=== PATIENT | male | born 1960 | race Caucasian/White ===

== ENCOUNTER 2019-05-17 05:47 | Observation (INO) | payer BC ==
[2019-05-17] MEDS ORDERED: Acetaminophen 325 MG Tab PO ONE (06:28)
[2019-05-17] MEDS ORDERED: Ibuprofen 800 MG Tab PO ONE (06:28)
[2019-05-17] MEDS ORDERED: Cyclobenzaprine 10 MG Tab PO ONE (06:28)
--- NOTE | 2019-05-17 06:47 | EDM.PDOC ---
<Inez Mahmood A - Last Filed: 05/17/19 07:22> ED HPI GENERAL MEDICAL PROBLEM - General Chief Complaint: Back Pain or Injury Stated Complaint: [facility] Time Seen by Provider: 05/17/19 06:19 Source of Information: Reports: Patient History Limitations: Reports: No Limitations - History of Present Illness INITIAL COMMENTS - FREE TEXT/NARRATIVE: 59 y/o M with low back pain. 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 He felt OK last evening. Developed severe pain in the night. Pain is in the lower back region, middle of the back, doesn't radiate. OK at rest but severe pain with movement. Has had minor back pain before but never this severe. No neck or upper back pain. Difficulty ambulating at this time due to pain. No recent illness. Lower Back Pain Score (Numeric/FACES): 10 - Related Data Allergies Allergy/AdvReac Type Severity Reaction Status Date / Time No Known Allergies Allergy Verified 05/17/19 05:53 Home Meds: Home Meds Cyclobenzaprine [Flexeril] 10 mg PO TID PRN #24 tab 05/17/19 [Rx] Ibuprofen [Ibu] 800 mg PO TID PRN #30 tablet 05/17/19 [Rx] oxyCODONE 5 mg PO QID PRN #12 tab 05/17/19 [Rx] Past Medical History - Past Health History Medical/Surgical History: Denies Medical/Surgical History Social & Family History - Tobacco Use Smoking Status *Q: Never Smoker - Recreational Drug Use Recreational Drug Use: No ED ROS GENERAL - Review of Systems Review Of Systems: See Below Constitutional: Denies: Fever Respiratory: Reports: No Symptoms Cardiovascular: Reports: No Symptoms GI/Abdominal: Reports: No Symptoms Musculoskeletal: Reports: Back Pain Neurological: Denies: Numbness, Weakness ED EXAM,LOWER BACK PAIN/INJURY - Physical Exam Exam: See Below Exam Limited By: No Limitations General Appearance: Alert, WD/WN, No Apparent Distress Eye Exam: Bilateral Eye: Normal Inspection Neck: Normal Inspection, Supple, Non-Tender Respiratory/Chest: No Respiratory Distress Back Exam: Normal Inspection, Paraspinal Tenderness (mid-lumbar ). No: CVA Tenderness (L), CVA Tenderness (R), Vertebral Tenderness Neurological: Alert, Normal Mood/Affect, Normal Dorsiflexion, Normal Plantar Flexion, No Motor/Sensory Deficits, Oriented x 3 Psychiatric: Normal Affect, Normal Mood Skin Exam: Warm, Dry, Intact Course - Vital Signs Last Recorded V/S: Last Vital Signs Temp 36.2 C 05/17/19 05:51 Pulse 64 05/17/19 05:51 Resp 18 05/17/19 05:51 BP 120/65 05/17/19 05:51 Pulse Ox 100 05/17/19 05:51 - Orders/Labs/Meds Orders: Active Orders 24 hr Category Date Time Status Insert De Catheter [Insert Urinary Catheter] [OM.PC] Care 05/17/19 13:25 Ordered Stat Urinary Catheter Assessment [RC] ASDIRECTED Care 05/17/19 13:25 Active Lumbar Spine Comp wo Cont [MR] Stat Exams 05/17/19 14:06 Ordered Labs: Laboratory Tests 05/17/19 05/17/19 05/17/19 Range/Units 13:30 14:00 14:00 WBC 5.71 (4.23-9.07) K/mm3 RBC 5.00 (4.63-6.08) M/mm3 Hgb 15.2 (13.7-17.5) gm/dl Hct 44.2 (40.1-51.0) % MCV 88.4 (79.0-92.2) fl MCH 30.4 (25.7-32.2) pg MCHC 34.4 (32.2-35.5) g/dl RDW Std Deviation 42.4 (35.1-43.9) fL Plt Count 210 (163-337) K/mm3 MPV 9.4 (9.4-12.3) fl Neut % (Auto) 58.0 (34.0-67.9) % Lymph % (Auto) 31.7 (21.8-53.1) % [place] % (Auto) 9.6 (5.3-12.2) % Eos % (Auto) 0.7 L (0.8-7.0) Baso % (Auto) 0.0 L (0.1-1.2) % Neut # (Auto) 3.31 (1.78-5.38) K/mm3 Lymph # (Auto) 1.81 (1.32-3.57) K/mm3 [place] # (Auto) 0.55 (0.30-0.82) K/mm3 Eos # (Auto) 0.04 (0.04-0.54) K/mm3 Baso # (Auto) 0.00 L (0.01-0.08) K/mm3 Sodium 138 (136-145) mEq/L Potassium 4.1 (3.5-5.1) mEq/L Chloride 103 (98-107) mEq/L Carbon Dioxide 29 (21-32) mEq/L Anion Gap 10.1 (5-15) BUN 16 (7-18) mg/dL Creatinine 1.1 (0.7-1.3) mg/dL Est Cr Clr Drug Dosing 73.20 mL/min Estimated GFR (MDRD) > 60 (>60) mL/min BUN/Creatinine Ratio 14.5 (14-18) Glucose 94 (74-106) mg/dL Calcium 8.8 (8.5-10.1) mg/dL Total Bilirubin 1.4 H (0.2-1.0) mg/dL AST 18 (15-37) U/L ALT 47 (16-63) U/L Alkaline Phosphatase 108 (46-116) U/L Total Protein 7.0 (6.4-8.2) g/dl Albumin 3.5 (3.4-5.0) g/dl Globulin 3.5 gm/dL Albumin/Globulin Ratio 1.0 (1-2) Urine Color Yellow (Yellow) Urine Appearance Clear (Clear) Urine pH 6.5 (5.0-8.0) Ur Specific [place] 1.020 (1.005-1.030) Urine Protein Negative (Negative) Urine Glucose (UA) Negative (Negative) Urine Ketones Negative (Negative) Urine Occult Blood Negative (Negative) Urine Nitrite Negative (Negative) Urine Bilirubin Negative (Negative) Urine Urobilinogen 0.2 (0.2-1.0) Ur Leukocyte Esterase Negative (Negative) Urine RBC Not seen (0-5) /hpf Urine WBC Not seen (0-5) /hpf Ur Squamous Epith Cells Not seen (0-5) /hpf Urine Bacteria Rare (FEW) /hpf Urine Mucus Few (FEW) /hpf Meds: Medications Discontinued Medications Generic Name Dose Route Start Last Admin Trade Name Freq PRN Reason Stop Dose Admin Acetaminophen 650 mg 05/17/19 06:28 05/17/19 06:33 Tylenol PO 05/17/19 06:29 650 mg BEDTIME ONE Administration Cyclobenzaprine HCl 10 mg 05/17/19 06:28 05/17/19 06:33 Flexeril PO 05/17/19 06:29 10 mg ONETIME ONE Administration Hydromorphone HCl 1 mg 05/17/19 07:13 05/17/19 07:21 Dilaudid IM 05/17/19 07:14 1 mg ONETIME ONE Administration Hydromorphone HCl 0.5 mg 05/17/19 08:29 05/17/19 08:33 Dilaudid IM 05/17/19 08:30 0.5 mg ONETIME ONE Administration Hydromorphone HCl 1 mg 05/17/19 12:56 05/17/19 12:58 Dilaudid IM 05/17/19 12:57 1 mg ONETIME ONE Administration Ibuprofen 800 mg 05/17/19 06:28 05/17/19 06:33 Motrin PO 05/17/19 06:29 800 mg ONETIME ONE Administration Ketorolac Tromethamine 60 mg 05/17/19 11:52 05/17/19 11:58 Toradol IM 05/17/19 11:53 60 mg ONETIME ONE Administration Lorazepam 1 mg 05/17/19 14:31 05/17/19 14:35 Ativan IVPUSH 05/17/19 14:32 1 mg ONETIME ONE Administration Lorazepam Confirm 05/17/19 14:32 05/17/19 14:36 Ativan Administered 05/17/19 14:33 Not Given Dose 2 mg .ROUTE .STK-MED ONE Sodium Chloride 10 ml 05/17/19 13:54 05/17/19 14:35 Saline Flush FLUSH 05/17/19 13:55 10 ml ASDIRECTED ONE Administration - Re-Assessments/Exams Free Text/Narrative Re-Assessment/Exam: 05/17/19 07:22 After ibuprofen, APAP, and cylclobenzaprine still unable to ambulate. Will give IM dilaudid and reassess. XR lumbar spine shows no fracture/no acute abnormality. Departure - Departure Time of Disposition: 07:45 Disposition: Home, Self-Care 01 Clinical Impression: Low back pain Qualifiers: Chronicity: acute Back pain laterality: midline Sciatica presence: without sciatica Qualified Code(s): M54.5 - Low back pain - Discharge Information Prescriptions: Cyclobenzaprine [Flexeril] 10 mg PO TID PRN #24 tab PRN Reason: Muscle Spasm Ibuprofen [Ibu] 800 mg PO TID PRN #30 tablet PRN Reason: Pain oxyCODONE 5 mg PO QID PRN #12 tab PRN Reason: Pain Instructions: Acute Back Pain, Adult Referrals: PCP,None [Primary Care Provider] - Forms: ED Department Discharge Additional Instructions: 1. Take ibuprofen as prescribed for pain. Take acetaminophen in addition to ibuprofen according to bottle directions. OK to take both meds together. 2. Take flexeril (cyclobenzaprine) as needed for muscle spasm. Take oxycodone for severe pain. 3. Rest. Avoid activities that seem to make the pain worse. 4. Follow up with the primary care provider of your choice ideally in about a week. Call [phone] if you'd like to follow up with someone here. 5. Return to the ED as needed for severe pain or new concerning symptoms, such as weakness or numbness or high fever - My Orders Last 24 Hours: My Active Orders 05/17/19 13:25 Insert De Catheter [Insert Urinary Catheter] [OM.PC] Stat Urinary Catheter Assessment [RC] ASDIRECTED 05/17/19 14:06 Lumbar Spine Comp wo Cont [MR] Stat - Assessment/Plan Last 24 Hours: My Active Orders 05/17/19 13:25 Insert De Catheter [Insert Urinary Catheter] [OM.PC] Stat Urinary Catheter Assessment [RC] ASDIRECTED 05/17/19 14:06 Lumbar Spine Comp wo Cont [MR] Stat <Tyree High - Last Filed: 05/17/19 14:45> Course - Orders/Labs/Meds Labs: Laboratory Tests 05/17/19 05/17/19 05/17/19 Range/Units 13:30 14:00 14:00 WBC 5.71 (4.23-9.07) K/mm3 RBC 5.00 (4.63-6.08) M/mm3 Hgb 15.2 (13.7-17.5) gm/dl Hct 44.2 (40.1-51.0) % MCV 88.4 (79.0-92.2) fl MCH 30.4 (25.7-32.2) pg MCHC 34.4 (32.2-35.5) g/dl RDW Std Deviation 42.4 (35.1-43.9) fL Plt Count 210 (163-337) K/mm3 MPV 9.4 (9.4-12.3) fl Neut % (Auto) 58.0 (34.0-67.9) % Lymph % (Auto) 31.7 (21.8-53.1) % [place] % (Auto) 9.6 (5.3-12.2) % Eos % (Auto) 0.7 L (0.8-7.0) Baso % (Auto) 0.0 L (0.1-1.2) % Neut # (Auto) 3.31 (1.78-5.38) K/mm3 Lymph # (Auto) 1.81 (1.32-3.57) K/mm3 [place] # (Auto) 0.55 (0.30-0.82) K/mm3 Eos # (Auto) 0.04 (0.04-0.54) K/mm3 Baso # (Auto) 0.00 L (0.01-0.08) K/mm3 Sodium 138 (136-145) mEq/L Potassium 4.1 (3.5-5.1) mEq/L Chloride 103 (98-107) mEq/L Carbon Dioxide 29 (21-32) mEq/L Anion Gap 10.1 (5-15) BUN 16 (7-18) mg/dL Creatinine 1.1 (0.7-1.3) mg/dL Est Cr Clr Drug Dosing 73.20 mL/min Estimated GFR (MDRD) > 60 (>60) mL/min BUN/Creatinine Ratio 14.5 (14-18) Glucose 94 (74-106) mg/dL Calcium 8.8 (8.5-10.1) mg/dL Total Bilirubin 1.4 H (0.2-1.0) mg/dL AST 18 (15-37) U/L ALT 47 (16-63) U/L Alkaline Phosphatase 108 (46-116) U/L Total Protein 7.0 (6.4-8.2) g/dl Albumin 3.5 (3.4-5.0) g/dl Globulin 3.5 gm/dL Albumin/Globulin Ratio 1.0 (1-2) Urine Color Yellow (Yellow) Urine Appearance Clear (Clear) Urine pH 6.5 (5.0-8.0) Ur Specific [place] 1.020 (1.005-1.030) Urine Protein Negative (Negative) Urine Glucose (UA) Negative (Negative) Urine Ketones Negative (Negative) Urine Occult Blood Negative (Negative) Urine Nitrite Negative (Negative) Urine Bilirubin Negative (Negative) Urine Urobilinogen 0.2 (0.2-1.0) Ur Leukocyte Esterase Negative (Negative) Urine RBC Not seen (0-5) /hpf Urine WBC Not seen (0-5) /hpf Ur Squamous Epith Cells Not seen (0-5) /hpf Urine Bacteria Rare (FEW) /hpf Urine Mucus Few (FEW) /hpf - Re-Assessments/Exams Free Text/Narrative Re-Assessment/Exam: 05/17/19 14:40 The patient condition never really improved to the point where the patient can adequately go home he couldn't get up to void. I given him a couple more doses of Dilaudid and Toradol without any improvement we straight cathetered him for 1200 mL urine. He did have an x-ray done with his initial evaluation showed some anterior wedging at T11-12 and L1 age was indeterminate we were able to get an MRI so the patient is over a not done now. I did discuss the patient's case with Dr. Arvizu who will assume care of the patient to treat back pain and get him back on his feet as he is not able to be discharged at this time. On my examination straight leg raises are fairly normal except for localized back discomfort at near full flexion on the right and more so on the left at about 75-80. He had no spinous process discomfort significant paraspinous spasm much more on the left. He did jump off something for 5 feet onto his feet whether or not this correlates with anterior wedging discussed above is unclear to me. Departure - Departure Time of Disposition: 13:30 - My Orders Last 24 Hours: My Active Orders 05/17/19 13:25 Insert De Catheter [Insert Urinary Catheter] [OM.PC] Stat Urinary Catheter Assessment [RC] ASDIRECTED 05/17/19 14:06 Lumbar Spine Comp wo Cont [MR] Stat - Assessment/Plan Last 24 Hours: My Active Orders 05/17/19 13:25 Insert De Catheter [Insert Urinary Catheter] [OM.PC] Stat Urinary Catheter Assessment [RC] ASDIRECTED 05/17/19 14:06 Lumbar Spine Comp wo Cont [MR] Stat
[2019-05-17] MEDS ORDERED: HYDROmorphone 1 MG/ML Syringe IM ONE ×2 (07:13→12:56)
[2019-05-17] MEDS ORDERED: HYDROmorphone 0.5 MG/0.5 ML Syringe IM ONE (08:29)
[2019-05-17] MEDS ORDERED: Ketorolac 60 MG/2 ML SDV IM ONE (11:52)
[2019-05-17] MEDS ORDERED: HYDROmorphone 1 MG/ML Syringe IVPUSH ONE (12:25)
--- NOTE | 2019-05-17 13:06 | CR ---
Lumbar spine: AP and crosstable lateral views were obtained of the lumbar spine. Mild anterior wedging is noted of T11, T12 and L1. Mild diffuse disc space narrowing is seen. Disc space narrowing is most severe at L4-L5. Scattered anterior lateral endplate osteophytes are seen. Pedicles as well as transverse and spinous processes are intact. No abnormal subluxation is seen. Impression: 1. Anterior wedging of T11, T12 and L1. Age of these are indeterminate. MRI would be needed to further age these findings if clinically indicated. 2. Mild diffuse degenerative change. Diagnostic code #3
[2019-05-17] MEDS ORDERED: Sodium Chloride 0.9% 10 ML Syringe FLUSH ONE (13:54)
[2019-05-17] MEDS ORDERED: LORazepam 2 MG/ML SDV IVPUSH ONE (14:31)
[2019-05-17] MEDS ORDERED: LORazepam 2 MG/ML SDV ONE (14:32)
--- NOTE | 2019-05-17 15:48 | MR ---
MRI lumbar spine Technique: T1 weighted axial images were obtained from above T12-L1 disc through the L5-S1 disc. T2-weighted axial images were obtained from above the L1-L2 disc through the L5-S1 disc. T1, T2 and fat suppressed inversion recovery sagittal images are obtained. Comparison: Previous lumbar spine plain film study performed earlier on the same date. Findings: No bone marrow edema is seen to indicate an acute vertebral body fracture. T10-T11 and T11-T12: Disc space narrowing is noted. Minimal posterior disc bulging is seen. No central canal stenosis or neural foraminal stenosis is seen. T12-L1: Moderate disc space narrowing is noted with Schmorl node deformities. Degenerative endplate signal change is noted anteriorly. Very slight circumferential disc bulge is seen. No central canal stenosis or neural foraminal stenosis is seen. L1-L2: Mild disc space narrowing is noted. Slight circumferential disc bulge is present. No central canal stenosis is seen. Minimal degenerative apophyseal change is noted. Neural foramina are patent where the nerve roots exit. L2-3: Mild disc space narrowing is seen posteriorly. Very slight circumferential disc bulge is noted. Mild degenerative apophyseal change is seen. No central canal stenosis is noted. Neural foramina are patent where the nerve roots exit. L3-L4: Posterior disc space narrowing is seen. No central canal stenosis or neural foraminal stenosis is seen. L4-L5: Severe disc space narrowing is seen. Degenerative endplate signal change is noted. Slight circumferential disc bulge is noted. Minimal degenerative apophyseal change is seen. No central canal stenosis or neural foraminal stenosis is seen. L5-S1: Posterior disc space narrowing is seen. Minimal physiologic disc bulge is seen posteriorly. No central canal stenosis or neural foraminal stenosis is seen. Diffuse degenerative dehydration change is noted within the discs. Conus medullaris and cauda equina shows no abnormal signal or mass. Impression: 1. Diffuse degenerative change as described above. 2. No bone marrow edema is identified. Nothing is seen to indicate an acute vertebral body injury. Diagnostic code #2
[2019-05-17] MEDS ORDERED: Triamcinolone Acetonide 40 MG/ML 1 ML MDV INJECT ONE (16:24)
[2019-05-17] MEDS ORDERED: Lidocaine 1% 10 ML MDV INJECT ONE (16:25)
[2019-05-17] MEDS ORDERED: Ondansetron 4 MG/2 ML SDV IV PRN (16:43)
[2019-05-17] MEDS ORDERED: Sulindac 200 MG Tab PO STA (16:43)
[2019-05-17] MEDS ORDERED: Ondansetron 4 MG Tab.DIS PO PRN (16:43)
[2019-05-17] MEDS: Enoxaparin 40 MG/0.4 ML Syringe SUBCUT SCH (18:01)
[2019-05-17] MEDS: Cyclobenzaprine 10 MG Tab PO SCH (20:35)
--- NOTE | 2019-05-18 07:51 | PCM.HP.2 ---
H&P History of Present Illness - General Date of Service: 05/17/19 Admit Problem/Dx: Admission Diagnosis/Problem Admission Diagnosis/Problem Back pain - History of Present Illness Initial Comments - Free Text/Narative: This is a 59 year old male who came to the ED complaining of severe back pain that he noticed in the middle of the night when he attempted to get up to go to the restroom. As per patient he had to jump down approximately 5ft at work. Pain is described as 10/10, non-radiating, denies numbness, tingling, weakness. Did not attempt any medications for pain relief. Lower Back Pain Score (Numeric/FACES): 0 - Related Data Allergies/Adverse Reactions: Allergies Allergy/AdvReac Type Severity Reaction Status Date / Time tree nut Allergy Facial Verified 05/17/19 17:40 Swelling Home Medications: Home Meds Cyclobenzaprine [Flexeril] 10 mg PO BID #10 tablet 05/18/19 [Rx] Sulindac [Clinoril] 200 mg PO BIDMEALS #10 tab 05/18/19 [Rx] methylPREDNISolone [Medrol] 4 mg PO ASDIRECTED #1 dosepk 05/18/19 [Rx] Past Medical History - Past Health History Medical/Surgical History: Denies Medical/Surgical History Other Psychiatric History: Occassionally has anxiety attacks - not treated for it. - Past Surgical History Other Musculoskeletal Surgeries/Procedures:: Broke right wrist as a child - surgery. Broke right elbow. Hyperextended knee. Broke little pinky (left) Social & Family History - Family History Cardiac: Reports: Hypertension Endocrine/Metabolic: Reports: Diabetes, type II Oncologic: Reports: Lung - Tobacco Use Smoking Status *Q: Never Smoker - Caffeine Use Caffeine Use: Reports: Soda - Recreational Drug Use Recreational Drug Use: No H&P Review of Systems - Review of Systems: General: Reports: No Symptoms. Denies: Fever, Chills, Malaise, Weakness, Fatigue HEENT: Reports: No Symptoms. Denies: Headaches, Vertigo, Visual Changes Pulmonary: Reports: No Symptoms. Denies: Shortness of Breath, Wheezing, Cough Cardiovascular: Reports: No Symptoms. Denies: Chest Pain, Palpitations, Dyspnea on Exertion, Orthopnea, PND, Lightheadedness, Syncope Gastrointestinal: Reports: No Symptoms. Denies: Abdominal Pain, Anorexia, Constipation, Diarrhea Genitourinary: Reports: No Symptoms. Denies: Dysuria, Frequency Musculoskeletal: Reports: No Symptoms, Back Pain, Muscle Pain, Muscle Stiffness Skin: Reports: No Symptoms. Denies: Bruising, Change in Color, Change in Hair/ Nails Psychiatric: Reports: No Symptoms. Denies: Depression, Anxiety Neurological: Reports: No Symptoms, Difficulty Walking, Gait Disturbance. Denies: Confusion, Dizziness, Headache, Numbness, Seizure, Syncope, Tingling, Weakness, Change in Speech Hematologic/Lymphatic: Reports: No Symptoms Immunologic: Reports: No Symptoms Exam - Vital Signs Vital Signs: Last Vital Signs Temp 37.1 C 05/18/19 01:17 Pulse 55 L 05/18/19 01:17 Resp 16 05/18/19 01:17 BP 109/67 05/18/19 01:17 Pulse Ox 90 L 05/18/19 01:17 Weight: 94.665 kg - Exam General: Alert, Oriented HEENT: Conjunctiva Clear, EOMI, Mucosa Moist & [place], Nares Patent, Pupils Equal , Pupils Reactive Neck: Supple, Trachea Midline Lungs: Clear to Auscultation, Normal Respiratory Effort. No: Crackles, Rales, Rhonchi, Wheezing Cardiovascular: Regular Rate, Regular Rhythm. No: Systolic Murmur, Diastolic Murmur GI/Abdominal Exam: Normal Bowel Sounds, Soft, Non-Tender, No Organomegaly, No Distention, No Abnormal Bruit Back Exam: Decreased Range of Motion, Paraspinal Tenderness, Vertebral Tenderness Extremities: Normal Inspection, Normal Range of Motion, Non-Tender, No Pedal Edema, Normal Capillary Refill Skin: Warm, Intact Neurological: Cranial Nerves Intact, Reflexes Equal Bilateral - Patient Data Lab Results Last 24 hrs: Laboratory Results - last 24 hr 05/17/19 05/17/19 05/17/19 Range/Units 13:30 14:00 14:00 WBC 5.71 (4.23-9.07) K/mm3 RBC 5.00 (4.63-6.08) M/mm3 Hgb 15.2 (13.7-17.5) gm/dl Hct 44.2 (40.1-51.0) % MCV 88.4 (79.0-92.2) fl MCH 30.4 (25.7-32.2) pg MCHC 34.4 (32.2-35.5) g/dl RDW Std Deviation 42.4 (35.1-43.9) fL Plt Count 210 (163-337) K/mm3 MPV 9.4 (9.4-12.3) fl Neut % (Auto) 58.0 (34.0-67.9) % Lymph % (Auto) 31.7 (21.8-53.1) % [place] % (Auto) 9.6 (5.3-12.2) % Eos % (Auto) 0.7 L (0.8-7.0) Baso % (Auto) 0.0 L (0.1-1.2) % Neut # (Auto) 3.31 (1.78-5.38) K/mm3 Lymph # (Auto) 1.81 (1.32-3.57) K/mm3 [place] # (Auto) 0.55 (0.30-0.82) K/mm3 Eos # (Auto) 0.04 (0.04-0.54) K/mm3 Baso # (Auto) 0.00 L (0.01-0.08) K/mm3 Sodium 138 (136-145) mEq/L Potassium 4.1 (3.5-5.1) mEq/L Chloride 103 (98-107) mEq/L Carbon Dioxide 29 (21-32) mEq/L Anion Gap 10.1 (5-15) BUN 16 (7-18) mg/dL Creatinine 1.1 (0.7-1.3) mg/dL Est Cr Clr Drug Dosing 73.20 mL/min Estimated GFR (MDRD) > 60 (>60) mL/min BUN/Creatinine Ratio 14.5 (14-18) Glucose 94 (74-106) mg/dL Calcium 8.8 (8.5-10.1) mg/dL Total Bilirubin 1.4 H (0.2-1.0) mg/dL AST 18 (15-37) U/L ALT 47 (16-63) U/L Alkaline Phosphatase 108 (46-116) U/L Total Protein 7.0 (6.4-8.2) g/dl Albumin 3.5 (3.4-5.0) g/dl Globulin 3.5 gm/dL Albumin/Globulin Ratio 1.0 (1-2) Urine Color Yellow (Yellow) Urine Appearance Clear (Clear) Urine pH 6.5 (5.0-8.0) Ur Specific [place] 1.020 (1.005-1.030) Urine Protein Negative (Negative) Urine Glucose (UA) Negative (Negative) Urine Ketones Negative (Negative) Urine Occult Blood Negative (Negative) Urine Nitrite Negative (Negative) Urine Bilirubin Negative (Negative) Urine Urobilinogen 0.2 (0.2-1.0) Ur Leukocyte Esterase Negative (Negative) Urine RBC Not seen (0-5) /hpf Urine WBC Not seen (0-5) /hpf Ur Squamous Epith Cells Not seen (0-5) /hpf Urine Bacteria Rare (FEW) /hpf Urine Mucus Few (FEW) /hpf Result Diagrams: 05/17/19 14:00 05/17/19 14:00 - Problem List (1) Lumbar paraspinal muscle spasm SNOMED Code(s): 60314525315050641, [id number] ICD Code: M62.830 - MUSCLE SPASM OF BACK Status: Acute Current Visit: Yes Problem List Initiated/Reviewed/Updated: Yes Orders Last 24hrs: Active Orders 24 hr Category Date Time Status Patient Status [ADT] Stat ADT 05/17/19 16:11 Active Insert De Catheter [Insert Urinary Catheter] [OM.PC] Care 05/17/19 13:25 Ordered Stat Oxygen Therapy [RC] PRN Care 05/17/19 16:43 Active Up With Assistance [RC] ASDIRECTED Care 05/17/19 16:43 Active VTE/DVT Education [RC] PER UNIT ROUTINE Care 05/17/19 16:43 Active Vital Signs [RC] Q4HR Care 05/17/19 16:43 Active Regular Diet [DIET] Diet 05/17/19 Dinner Active Cyclobenzaprine [Flexeril] Med 05/17/19 21:00 Active 10 mg PO BID Enoxaparin [Lovenox] Med 05/17/19 16:45 Active 40 mg SUBCUT DAILY Ondansetron [Zofran ODT] Med 05/17/19 16:43 Active 4 mg PO Q4H PRN Ondansetron [Zofran] Med 05/17/19 16:43 Active 4 mg IV Q4H PRN methylPREDNISolone [Medrol] Med 05/20/19 09:00 Once 12 mg PO ONETIME ONE methylPREDNISolone [Medrol] Med 05/19/19 09:00 Once 16 mg PO ONETIME ONE methylPREDNISolone [Medrol] Med 05/18/19 09:00 Once 20 mg PO ONETIME ONE methylPREDNISolone [Medrol] Med 05/22/19 09:00 Once 4 mg PO ONETIME ONE methylPREDNISolone [Medrol] Med 05/21/19 09:00 Once 8 mg PO ONETIME ONE Resuscitation Status Routine Resus Stat 05/17/19 16:43 Ordered Medication Orders Cyclobenzaprine HCl (Flexeril) 10 mg PO BID [facility] Last Admin: 05/17/19 20:35 Dose: 10 mg Enoxaparin Sodium (Lovenox) 40 mg SUBCUT DAILY [facility] Last Admin: 05/17/19 18:01 Dose: 40 mg Methylprednisolone (Medrol) 20 mg PO ONETIME ONE Stop: 05/18/19 09:01 Methylprednisolone (Medrol) 16 mg PO ONETIME ONE Stop: 05/19/19 09:01 Methylprednisolone (Medrol) 12 mg PO ONETIME ONE Stop: 05/20/19 09:01 Methylprednisolone (Medrol) 8 mg PO ONETIME ONE Stop: 05/21/19 09:01 Methylprednisolone (Medrol) 4 mg PO ONETIME ONE Stop: 05/22/19 09:01 Ondansetron HCl (Zofran) 4 mg IV Q4H PRN PRN Reason: Nausea/Vomiting Ondansetron HCl (Zofran Odt) 4 mg PO Q4H PRN PRN Reason: nausea, able to take PO Assessment/Plan Comment:: ASSESSMENT & PLAN Acute lumbar spasm Unable to ambulate with significantly restricted range of motion No focal neurologic findings PLAN - Pressure point injection with triamcinolone and lidocaine - Schedule chlordiazepoxide and sulindac - Ambulation with assistance PROPHYLAXIS DVT- Enoxaparin GI- not indicated DISPOSITION Discharge tomorrow once pain is controlled.
--- NOTE | 2019-05-18 07:51 | PCM.PN ---
- Patient Data Vitals - Most Recent: Last Vital Signs Temp 37.1 C 05/18/19 01:17 Pulse 55 L 05/18/19 01:17 Resp 16 05/18/19 01:17 BP 109/67 05/18/19 01:17 Pulse Ox 90 L 05/18/19 01:17 Weight - Most Recent: 94.665 kg I&O - Last 24 Hours: Intake & Output 05/17/19 05/18/19 05/18/19 22:59 06:59 14:59 Intake Total 0 Output Total 450 Balance -450 Lab Results Last 24 Hours: Laboratory Results - last 24 hr 05/17/19 05/17/19 05/17/19 Range/Units 13:30 14:00 14:00 WBC 5.71 (4.23-9.07) K/mm3 RBC 5.00 (4.63-6.08) M/mm3 Hgb 15.2 (13.7-17.5) gm/dl Hct 44.2 (40.1-51.0) % MCV 88.4 (79.0-92.2) fl MCH 30.4 (25.7-32.2) pg MCHC 34.4 (32.2-35.5) g/dl RDW Std Deviation 42.4 (35.1-43.9) fL Plt Count 210 (163-337) K/mm3 MPV 9.4 (9.4-12.3) fl Neut % (Auto) 58.0 (34.0-67.9) % Lymph % (Auto) 31.7 (21.8-53.1) % [place] % (Auto) 9.6 (5.3-12.2) % Eos % (Auto) 0.7 L (0.8-7.0) Baso % (Auto) 0.0 L (0.1-1.2) % Neut # (Auto) 3.31 (1.78-5.38) K/mm3 Lymph # (Auto) 1.81 (1.32-3.57) K/mm3 [place] # (Auto) 0.55 (0.30-0.82) K/mm3 Eos # (Auto) 0.04 (0.04-0.54) K/mm3 Baso # (Auto) 0.00 L (0.01-0.08) K/mm3 Sodium 138 (136-145) mEq/L Potassium 4.1 (3.5-5.1) mEq/L Chloride 103 (98-107) mEq/L Carbon Dioxide 29 (21-32) mEq/L Anion Gap 10.1 (5-15) BUN 16 (7-18) mg/dL Creatinine 1.1 (0.7-1.3) mg/dL Est Cr Clr Drug Dosing 73.20 mL/min Estimated GFR (MDRD) > 60 (>60) mL/min BUN/Creatinine Ratio 14.5 (14-18) Glucose 94 (74-106) mg/dL Calcium 8.8 (8.5-10.1) mg/dL Total Bilirubin 1.4 H (0.2-1.0) mg/dL AST 18 (15-37) U/L ALT 47 (16-63) U/L Alkaline Phosphatase 108 (46-116) U/L Total Protein 7.0 (6.4-8.2) g/dl Albumin 3.5 (3.4-5.0) g/dl Globulin 3.5 gm/dL Albumin/Globulin Ratio 1.0 (1-2) Urine Color Yellow (Yellow) Urine Appearance Clear (Clear) Urine pH 6.5 (5.0-8.0) Ur Specific [place] 1.020 (1.005-1.030) Urine Protein Negative (Negative) Urine Glucose (UA) Negative (Negative) Urine Ketones Negative (Negative) Urine Occult Blood Negative (Negative) Urine Nitrite Negative (Negative) Urine Bilirubin Negative (Negative) Urine Urobilinogen 0.2 (0.2-1.0) Ur Leukocyte Esterase Negative (Negative) Urine RBC Not seen (0-5) /hpf Urine WBC Not seen (0-5) /hpf Ur Squamous Epith Cells Not seen (0-5) /hpf Urine Bacteria Rare (FEW) /hpf Urine Mucus Few (FEW) /hpf Med Orders - Current: Current Medications Cyclobenzaprine HCl (Flexeril) 10 mg PO BID [facility] Last Admin: 05/17/19 20:35 Dose: 10 mg Enoxaparin Sodium (Lovenox) 40 mg SUBCUT DAILY [facility] Last Admin: 05/17/19 18:01 Dose: 40 mg Methylprednisolone (Medrol) 20 mg PO ONETIME ONE Stop: 05/18/19 09:01 Methylprednisolone (Medrol) 16 mg PO ONETIME ONE Stop: 05/19/19 09:01 Methylprednisolone (Medrol) 12 mg PO ONETIME ONE Stop: 05/20/19 09:01 Methylprednisolone (Medrol) 8 mg PO ONETIME ONE Stop: 05/21/19 09:01 Methylprednisolone (Medrol) 4 mg PO ONETIME ONE Stop: 05/22/19 09:01 Ondansetron HCl (Zofran) 4 mg IV Q4H PRN PRN Reason: Nausea/Vomiting Ondansetron HCl (Zofran Odt) 4 mg PO Q4H PRN PRN Reason: nausea, able to take PO Discontinued Medications Acetaminophen (Tylenol) 650 mg PO BEDTIME ONE Stop: 05/17/19 06:29 Last Admin: 05/17/19 06:33 Dose: 650 mg Cyclobenzaprine HCl (Flexeril) 10 mg PO ONETIME ONE Stop: 05/17/19 06:29 Last Admin: 05/17/19 06:33 Dose: 10 mg Hydromorphone HCl (Dilaudid) 1 mg IM ONETIME ONE Stop: 05/17/19 07:14 Last Admin: 05/17/19 07:21 Dose: 1 mg Hydromorphone HCl (Dilaudid) 0.5 mg IM ONETIME ONE Stop: 05/17/19 08:30 Last Admin: 05/17/19 08:33 Dose: 0.5 mg Hydromorphone HCl (Dilaudid) 1 mg IM ONETIME ONE Stop: 05/17/19 12:57 Last Admin: 05/17/19 12:58 Dose: 1 mg Ibuprofen (Motrin) 800 mg PO ONETIME ONE Stop: 05/17/19 06:29 Last Admin: 05/17/19 06:33 Dose: 800 mg Ketorolac Tromethamine (Toradol) 60 mg IM ONETIME ONE Stop: 05/17/19 11:53 Last Admin: 05/17/19 11:58 Dose: 60 mg Lidocaine HCl (Xylocaine 1%) 10 ml INJECT ONETIME ONE Stop: 05/17/19 16:26 Last Admin: 05/17/19 16:33 Dose: 10 ml Lorazepam (Ativan) 1 mg IVPUSH ONETIME ONE Stop: 05/17/19 14:32 Last Admin: 05/17/19 14:35 Dose: 1 mg Lorazepam (Ativan) Confirm Administered Dose 2 mg .ROUTE .STK-MED ONE Stop: 05/17/19 14:33 Last Admin: 05/17/19 14:36 Dose: Not Given Methylprednisolone (Medrol) 24 mg PO ONETIME ONE Stop: 05/17/19 17:01 Last Admin: 05/17/19 18:02 Dose: 24 mg Sodium Chloride (Saline Flush) 10 ml FLUSH ASDIRECTED ONE Stop: 05/17/19 13:55 Last Admin: 05/17/19 14:35 Dose: 10 ml Sulindac (Clinoril) 200 mg PO BIDMEALS STA Stop: 05/17/19 16:44 Last Admin: 05/17/19 18:02 Dose: 200 mg Triamcinolone Acetonide (Kenalog-40) 40 mg INJECT ONETIME ONE Stop: 05/17/19 16:25 Last Admin: 05/17/19 16:33 Dose: 40 mg - My Orders Last 24 Hours: My Active Orders 05/17/19 16:43 Oxygen Therapy [RC] PRN Up With Assistance [RC] ASDIRECTED VTE/DVT Education [RC] PER UNIT ROUTINE Vital Signs [RC] Q4HR Ondansetron [Zofran ODT] 4 mg PO Q4H PRN Ondansetron [Zofran] 4 mg IV Q4H PRN Resuscitation Status Routine 05/17/19 16:45 Enoxaparin [Lovenox] 40 mg SUBCUT DAILY 05/17/19 21:00 Cyclobenzaprine [Flexeril] 10 mg PO BID 05/17/19 Dinner Regular Diet [DIET] 05/18/19 09:00 methylPREDNISolone [Medrol] 20 mg PO ONETIME ONE 05/19/19 09:00 methylPREDNISolone [Medrol] 16 mg PO ONETIME ONE 05/20/19 09:00 methylPREDNISolone [Medrol] 12 mg PO ONETIME ONE 05/21/19 09:00 methylPREDNISolone [Medrol] 8 mg PO ONETIME ONE 05/22/19 09:00 methylPREDNISolone [Medrol] 4 mg PO ONETIME ONE
[2019-05-18] MEDS ORDERED: Lidocaine 1% 10 ML MDV INJECT ONE (08:13)
[2019-05-18] MEDS ORDERED: Triamcinolone Acetonide 40 MG/ML 1 ML MDV INJECT ONE (08:13)
[2019-05-18] MEDS: Enoxaparin 40 MG/0.4 ML Syringe SUBCUT SCH (08:33)
[2019-05-18] MEDS: Cyclobenzaprine 10 MG Tab PO SCH (08:34)
[2019-05-18] MEDS ORDERED: Lidocaine 1% 10 ML MDV ONE (08:44)
[2019-05-18] MEDS ORDERED: Sulindac 200 MG Tab PO ONE (08:59)
--- NOTE | 2019-05-18 16:33 | PCM.DCSUM1 ---
Discharge Summary - Hospital Course Free Text/Narrative:: This is a 59 year old male with no significant past medical history who came to the ED complaining of severe lower back pain with significantly limited range of motion. Upon evaluation in the emergency department he was given multiple pain medications without improvement. I performed a pressure point injection with Triamcinolone and lidocaine, admitted patient and started Flexeril and Sulindac. Today in the AM patient was still in pain so I performed new pressure point injections in other points surrounding previous location. Patient's pain was resolved for which he was discharged to follow up with PCP. Diagnosis: Stroke: No - Discharge Data Discharge Date: 05/18/19 Discharge Disposition: Home, Self-Care 01 Condition: Good - Referral to Home Health Primary Care Physician: PCP None - Discharge Diagnosis/Problem(s) (1) Lumbar paraspinal muscle spasm SNOMED Code(s): 05359905446685205, [id number] ICD Code: M62.830 - MUSCLE SPASM OF BACK Status: Acute Current Visit: Yes - Patient Instructions Diet: Usual Diet as Tolerated Activity: As Tolerated - Discharge Plan Prescriptions/Med Rec: Cyclobenzaprine [Flexeril] 10 mg PO BID #10 tablet methylPREDNISolone [Medrol] 4 mg PO ASDIRECTED #1 dosepk Sulindac [Clinoril] 200 mg PO BIDMEALS #10 tab Home Medications: Home Meds Cyclobenzaprine [Flexeril] 10 mg PO BID #10 tablet 05/18/19 [Rx] Sulindac [Clinoril] 200 mg PO BIDMEALS #10 tab 05/18/19 [Rx] methylPREDNISolone [Medrol] 4 mg PO ASDIRECTED #1 dosepk 05/18/19 [Rx] Patient Handouts: Acute Back Pain, Adult Forms: ED Department Discharge Referrals: PCP,None [Primary Care Provider] - (Follow up in 5-7 days) - Discharge Summary/Plan Comment DC Time >30 min.: No - General Info Date of Service: 05/18/19 Admission Dx/Problem (Free Text: Pain improved overnight and resolved completely after second triamcinolone and lidocaine injection Functional Status: Reports: Pain Controlled - Review of Systems General: Reports: No Symptoms Musculoskeletal: Reports: No Symptoms Skin: Reports: No Symptoms Neurological: Reports: No Symptoms - Patient Data Vitals - Most Recent: Last Vital Signs Temp 36.7 C 05/18/19 08:35 Pulse 63 05/18/19 08:35 Resp 14 05/18/19 08:35 BP 123/78 05/18/19 08:35 Pulse Ox 93 L 05/18/19 08:35 Weight - Most Recent: 94.665 kg I&O - Last 24 hours: Intake & Output 05/18/19 05/18/19 05/18/19 06:59 14:59 22:59 Intake Total 1200 0 Output Total 400 Balance 800 0 Med Orders - Current: Current Medications Cyclobenzaprine HCl (Flexeril) 10 mg PO BID [facility] Last Admin: 05/18/19 08:34 Dose: 10 mg Enoxaparin Sodium (Lovenox) 40 mg SUBCUT DAILY [facility] Last Admin: 05/18/19 08:33 Dose: 40 mg Methylprednisolone (Medrol) 16 mg PO ONETIME ONE Stop: 05/19/19 09:01 Methylprednisolone (Medrol) 12 mg PO ONETIME ONE Stop: 05/20/19 09:01 Methylprednisolone (Medrol) 8 mg PO ONETIME ONE Stop: 05/21/19 09:01 Methylprednisolone (Medrol) 4 mg PO ONETIME ONE Stop: 05/22/19 09:01 Ondansetron HCl (Zofran) 4 mg IV Q4H PRN PRN Reason: Nausea/Vomiting Ondansetron HCl (Zofran Odt) 4 mg PO Q4H PRN PRN Reason: nausea, able to take PO Discontinued Medications Acetaminophen (Tylenol) 650 mg PO BEDTIME ONE Stop: 05/17/19 06:29 Last Admin: 05/17/19 06:33 Dose: 650 mg Cyclobenzaprine HCl (Flexeril) 10 mg PO ONETIME ONE Stop: 05/17/19 06:29 Last Admin: 05/17/19 06:33 Dose: 10 mg Hydromorphone HCl (Dilaudid) 1 mg IM ONETIME ONE Stop: 05/17/19 07:14 Last Admin: 05/17/19 07:21 Dose: 1 mg Hydromorphone HCl (Dilaudid) 0.5 mg IM ONETIME ONE Stop: 05/17/19 08:30 Last Admin: 05/17/19 08:33 Dose: 0.5 mg Hydromorphone HCl (Dilaudid) 1 mg IM ONETIME ONE Stop: 05/17/19 12:57 Last Admin: 05/17/19 12:58 Dose: 1 mg Ibuprofen (Motrin) 800 mg PO ONETIME ONE Stop: 05/17/19 06:29 Last Admin: 05/17/19 06:33 Dose: 800 mg Ketorolac Tromethamine (Toradol) 60 mg IM ONETIME ONE Stop: 05/17/19 11:53 Last Admin: 05/17/19 11:58 Dose: 60 mg Lidocaine HCl (Xylocaine 1%) 10 ml INJECT ONETIME ONE Stop: 05/17/19 16:26 Last Admin: 05/17/19 16:33 Dose: 10 ml Lidocaine HCl (Xylocaine 1%) 10 ml INJECT ONETIME ONE Stop: 05/18/19 08:14 Last Admin: 05/18/19 08:43 Dose: 10 ml Lidocaine HCl (Xylocaine 1%) Confirm Administered Dose 10 ml .ROUTE .STK-MED ONE Stop: 05/18/19 08:45 Last Admin: 05/18/19 08:58 Dose: 10 ml Lorazepam (Ativan) 1 mg IVPUSH ONETIME ONE Stop: 05/17/19 14:32 Last Admin: 05/17/19 14:35 Dose: 1 mg Lorazepam (Ativan) Confirm Administered Dose 2 mg .ROUTE .STK-MED ONE Stop: 05/17/19 14:33 Last Admin: 05/17/19 14:36 Dose: Not Given Methylprednisolone (Medrol) 24 mg PO ONETIME ONE Stop: 05/17/19 17:01 Last Admin: 05/17/19 18:02 Dose: 24 mg Methylprednisolone (Medrol) 20 mg PO ONETIME ONE Stop: 05/18/19 09:01 Last Admin: 05/18/19 08:34 Dose: 20 mg Sodium Chloride (Saline Flush) 10 ml FLUSH ASDIRECTED ONE Stop: 05/17/19 13:55 Last Admin: 05/17/19 14:35 Dose: 10 ml Sulindac (Clinoril) 200 mg PO BIDMEALS STA Stop: 05/17/19 16:44 Last Admin: 05/17/19 18:02 Dose: 200 mg Sulindac (Clinoril) 400 mg PO BIDMEALS [place] Sulindac (Clinoril) 400 mg PO ONETIME ONE Stop: 05/18/19 09:00 Last Admin: 05/18/19 10:18 Dose: 400 mg Triamcinolone Acetonide (Kenalog-40) 40 mg INJECT ONETIME ONE Stop: 05/17/19 16:25 Last Admin: 05/17/19 16:33 Dose: 40 mg Triamcinolone Acetonide (Kenalog-40) 80 mg INJECT ONETIME ONE Stop: 05/18/19 08:14 Last Admin: 05/18/19 08:43 Dose: 80 mg - Exam General: Reports: Alert, Oriented, Cooperative HEENT: Reports: Pupils Equal, Pupils Reactive, EOMI Neck: Reports: Supple, Trachea Midline Lungs: Reports: Clear to Auscultation, Normal Respiratory Effort. Denies: Crackles, Rales, Rhonchi, Wheezing Cardiovascular: Reports: Regular Rate, Regular Rhythm. Denies: No Murmurs GI/Abdominal Exam: Normal Bowel Sounds, Soft, Non-Tender, No Organomegaly, No Distention, No Mass Back Exam: Reports: Normal Inspection, Other (improved tenderness) Extremities: Normal Inspection, Normal Range of Motion, No Pedal Edema Skin: Reports: Warm Neurological: Reports: No New Focal Deficit
[2019-05-18] MEDS ORDERED: Sulindac 200 MG Tab PO SCH (17:00)
== END 2019-05-18 16:45 | disposition home or self-care (01) ==
LOC: JD.ED 05:47 → JD.MS 16:11
PROVIDERS: ADMIT Internal Medicine; ATTEND Internal Medicine
DX: M62.830 Muscle spasm of back (principal); Z91.010 Allergy to peanuts
CPT/HCPCS: 36415; 72100; 72148; 80053; 81001; 85025; 96372; 96374; 96375; 99285; A9270; J1170; J1650; J1885; J2001; J2060; J3301